=== PATIENT | female | born 1965 | race Two or more races ===

== ENCOUNTER 2024-08-27 12:10 | Emergency (ER) | payer BC, OTHER ==
[~2024-08-27] VITALS: Ht 160 cm; Wt 65.3 kg
[2024-08-27] MEDS ORDERED: ROSU5TAB PO (13:07)
[2024-08-27 13:28] LABS: BASOPHILS % (AUTO) 0.2 % (0.0-2.0); HEMATOCRIT 36.4 % (31.2-41.9); LYMPHOCYTES # (AUTO) 0.6 K/uL (0.8-4.8); LYMPHOCYTES % (AUTO) 8.8 % (20.5-51.5); MEAN CORPUSCULAR HEMOGLOBIN 29.4 uug (24.7-32.8); MEAN CORPUSCULAR HGB CONC 33 g/dL (32.3-35.6); MEAN CORPUSCULAR VOLUME 89.1 fL (75.5-95.3); MONOCYTES # (AUTO) 0.2 K/uL (0.1-1.30); MONOCYTES % (AUTO) 2.7 % (0.0-11.0); NEUTROPHILS % (AUTO) 88.3 % (38.5-71.5); PLATELET COUNT (AUTO) 134 K/uL (179-408); RED BLOOD CELL COUNT(AUTO) 4.09 MIL/uL (3.63-4.92); RED CELL DISTRIBUTION WIDTH 13.1 % (12.3-17.7); WHITE BLOOD COUNT (AUTO) 6.8 K/uL (3.8-11.8)
[2024-08-27 13:42] LABS: DIFFERENTIAL COMMENT 1
[2024-08-27] MEDS ORDERED: IBUP-1955 PO (15:06)
[2024-08-27] MEDS ORDERED: BENZ-13 PO (15:06)
[2024-08-27] MEDS: IV NORMAL SALINE 1000 ML BAG IV ONE (15:08)
[2024-08-27] MEDS ORDERED: KETOROLAC TROMETHAMINE 15 MG INJ ONE (15:09)
[2024-08-27] MEDS: KETOROLAC TROMETHAMINE 15 MG INJ IVP ONE (15:39)
[2024-08-27 15:46] LABS: CALCIUM 7.6 mg/dL (8.5-10.1); CREATININE 0.7 mg/dL (0.6-1.3); POTASSIUM 3.6 mmol/L (3.5-5.1)
[2024-08-27 15:58] LABS: ALBUMIN 3.6 g/dL (3.4-5.0); BILIRUBIN,DIRECT 0.1 mg/dL (0.0-0.2); BILIRUBIN,TOTAL 0.4 mg/dL (0.2-1.0); TOTAL PROTEIN, SERUM 7.5 g/dL (6.4-8.2)
[2024-08-27 16:57] VITALS: BP 155/69; O2SAT 98
== END 2024-08-27 16:58 | disposition home or self-care (01) ==
LOC: ER 12:10
DX: J06.9 Acute upper respiratory infection, unspecified (principal); R11.0 Nausea; R53.1 Weakness; R53.81 Other malaise; E78.5 Hyperlipidemia, unspecified; Z20.822 Contact with and (suspected) exposure to COVID-19; Z79.899 Other long term (current) drug therapy
CPT/HCPCS: 99285; 96374; 96361; 71045; 87426; 87804; 80076; 80048; 83880; 85025; 84145; 85730; 87040 ×2; 93005; 83605; J1885; J7040; A4606; A4663